=== PATIENT | female | born 1985 | race African-American/Black ===

== ENCOUNTER 2017-11-30 09:51 | Emergency (ER) | payer OTHER ==
[~2017-11-30] VITALS: Ht 170.2 cm; Wt 81.0 kg
[~2017-11-30 09:51] MED LIST: birthcontrol
[2017-11-30 11:00] VITALS: BP 121/54
== END 2017-11-30 11:20 | disposition home or self-care (01) ==
LOC: ER 10:16
DX: L50.8 Other urticaria (principal)
CPT/HCPCS: 99282

== ENCOUNTER 2022-12-29 21:04 | Emergency (ER) | payer MEDICAID, OTHER ==
[~2022-12-29] VITALS: Ht 167.6 cm; Wt 73.0 kg
[2022-12-29 21:05] VITALS: BP 121/84
[2022-12-29 22:45] LABS: BASOPHILS % 1.1 % (0.0-2.0); EOSINOPHILS % 1.1 % (0.0-5.0); HEMATOCRIT. 37.8 % (36.0-48.0); HEMOGLOBIN. 12.5 g/dL (12.0-16.0); LYMPHOCYTES % 30.3 % (20.0-50.0); MEAN CORPUSCULAR HEMOGLOBIN 27.6 pg (28.0-32.0); MEAN CORPUSCULAR VOLUME 83.4 fL (81.0-99.0); MEAN PLATELET VOLUME 7.6 fl (7.4-10.4); NEUTROPHILS % 61.5 % (40.0-76.0); PLATELET 279 x1000/uL (130-400); RED BLOOD CELL COUNT 4.54 mill/uL (4.2-5.4)
[2022-12-29 22:53] LABS: CHLORIDE 106 mEq/L (98-107)
[2022-12-29 22:58] LABS: HCG SCREEN NEGATIVE
[2022-12-29 23:14] LABS: PLATELET ESTIMATE NORMAL
== END 2022-12-30 02:46 | disposition left against medical advice (07) ==
LOC: ER 21:04
DX: R07.89 Other chest pain (principal)
CPT/HCPCS: 36415; 71045; 80053; 84484; 84703; 85025; 93005; 99281; 99285